=== PATIENT | male | born 1965 | race Hispanic/Latino ===

== ENCOUNTER 2019-10-27 15:05 | Emergency (ER) | payer SELFPAY ==
[~2019-10-27] VITALS: Ht 167.6 cm; Wt 77.1 kg
--- NOTE | 2019-10-27 15:12 | Emergency Department Note ---
History of Present Illnes History of Present Illness History of Present Illness This is a 54 year old male . History limited by: language barrier Tape Sewer Required: Yes Onset (how long ago): day(s) Severity: mild Onset quality: gradual Duration (how long): day(s) (1) Timing of current episode: constant Progression: unchanged Chronicity: new Associated symptoms: Reports fever/chills, Reports nausea/vomiting Treatments prior to arrival: none Past Medical/Family History Physician Review I have reviewed the patient's past medical and family history. Any updates have been documented here. Review of Systems Review of Systems Constitutional: Reports fever, Reports weakness Physical Exam Related Data Allergies: Coded Allergies: No Known Allergies (Unverified , 10/27/19) Vital signs reviewed: Yes Physical Exam CONSTITUTIONAL Constitutional: Present well-developed, Present well-nourished HENT HENT: Present normocephalic, Present atraumatic, Present oropharynx clear/moist, Present nose normal HENT L/R: Present left ext ear normal, Present right ext ear normal EYES Eyes: Reports PERRL, Reports conjunctivae normal NECK Neck: Present ROM normal PULMONARY Pulmonary: Present effort normal, Present breath sounds normal CARDIOVASCULAR Cardiovascular: Present regular rhythm, Present heart sounds normal, Present capillary refill normal, Present normal rate GASTROINTESTINAL Abdominal: Present soft, Present nontender, Present bowel sounds normal GENITOURINARY Genitourinary: Present exam deferred SKIN Skin: Present warm, Present dry MUSCULOSKELETAL Musculoskeletal: Present ROM normal NEUROLOGICAL Neurological: Present alert, Present oriented x 3, Present no gross motor or sensory deficits PSYCHOLOGICAL Psychological: Present mood/affect normal, Present judgement normal Assessment & Plan Medical Decision Making MDM 54 yom with fever and myalgias. (+) contact with family members with similiar symptoms. COVID-19 highly suspected but testing deferred secondary to stable vital signs and high oxygen saturation on RA. Patient to be given Rx Azithromycin and albuterol. Patient to be given resources for outpatient testing centers Assessment & Plan Final Impression: (1) Viral syndrome Depart Disposition: HOME, SELF-CARE IRENE CASTILLO Oct 27, 2019 15:11
[2019-10-27] MEDS ORDERED: ACETAMINOPHEN 325 MG TAB PO ONE (16:30)
== END 2019-10-27 16:34 | disposition home or self-care (01) ==
LOC: ER 15:05
DX: R50.9 Fever, unspecified (principal); M79.10 Myalgia, unspecified site; B34.9 Viral infection, unspecified; Z03.818 Encounter for observation for suspected exposure to other biological agents ruled out
CPT/HCPCS: 99282

== ENCOUNTER → 2021-04-14 | Day surgery (SDC) | payer BC ==
[~2021-04-14] MED LIST: FENTANYL CITRATE/PF 100MCG/2 ML INJ ONE; LIDOCAINE HCL 2% LOCAL INJ 5 ML SDV VIAL INJ ONE; METOCLOPRAMIDE HCL 10 MG/2ML VIAL ONE; MIDAZOLAM HCL 2 MG/2 ML VIAL ONE; OMEPRAZOLE40 MG PO; POVIDONE IODINE 0.05% 0.05 % ML PO ONE; PROPOFOL IV EMULSION 10 MG/ML 20 ML VIAL ONE
[2021-04-14 13:40] VITALS: BP 136/80
== END | disposition home or self-care (01) ==
LOC: ENDO 12:33
PROVIDERS: ATTEND Internal Medicine Gastroenterology
DX: K29.50 Unspecified chronic gastritis without bleeding (principal); K44.9 Diaphragmatic hernia without obstruction or gangrene; K31.7 Polyp of stomach and duodenum; K21.00 Gastro-esophageal reflux disease with esophagitis, without bleeding; F45.8 Other somatoform disorders; Z01.810 Encounter for preprocedural cardiovascular examination; Z01.812 Encounter for preprocedural laboratory examination; Z20.822 Contact with and (suspected) exposure to COVID-19
CPT/HCPCS: 43239; 43450; 93005; C9113; J2001; J2250; J2704; J2765; J3010; U0002